=== PATIENT | male | born 1990 | race African-American/Black ===

== ENCOUNTER 2019-08-30 12:32 | Emergency (ER) | payer SELFPAY ==
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
== END 2019-08-30 14:04 | disposition home or self-care (01) ==
LOC: ERS 12:32
DX: M25.511 Pain in right shoulder (principal); J45.909 Unspecified asthma, uncomplicated; F17.210 Nicotine dependence, cigarettes, uncomplicated